=== PATIENT | male | born 1985 | race African-American/Black ===

== ENCOUNTER 2020-02-06 16:44 | Inpatient (IN) | payer BC ==
[~2020-02-06] VITALS: Ht 185.4 cm; Wt 231.3 kg
[2020-02-06 17:15] VITALS: BP_SYST 161
[2020-02-06] MEDS ORDERED: [UNRECOGNIZED DRUG - CODE] PO (17:15)
[2020-02-06] MEDS ORDERED: ACET-2634 PO (17:15)
[2020-02-06] MEDS ORDERED: IBUP-1969 PO (17:15)
[2020-02-06] MEDS ORDERED: NACL 0.9% 1,000 ML IV ONE ×3 (17:45→20:00)
[2020-02-06] MEDS ORDERED: KETOROLAC TROMETHAMINE 30 MG VIAL IVP ONE (17:45)
[2020-02-06 18:53] LABS: CREATININE 0.86 mg/dL (0.55-1.30); POTASSIUM 3.9 mmol/L (3.5-5.1)
[2020-02-06 18:57] LABS: BILIRUBIN,URINE NEGATIVE (NEGATIVE); BLOOD, URINE NEGATIVE (NEGATIVE); CLARITY/URINE CLEAR (CLEAR); COLOR,URINE YELLOW (YELLOW); GLUCOSE,URINE NEGATIVE (NEGATIVE); KETONES,URINE NEGATIVE (NEGATIVE); LEUKOCYTE ESTERASE ,URINE NEGATIVE (NEGATIVE); NITRITE, URINE NEGATIVE (NEGATIVE); PROTEIN URINE NEGATIVE (NEGATIVE); UROBILINOGEN,URINE 0.2 (0.2-1.0)
[2020-02-06 18:59] LABS: BASOPHILS % (AUTO) 0.1 % (0.0-2.0); EOSINOPHILS # (AUTO) 0.1 K/uL (0.0-0.4); EOSINOPHILS % (AUTO) 0.9 % (0.0-4.0); HEMATOCRIT 37.2 % (36-54); HEMOGLOBIN 12.1 g/dL (14.0-18.0); LYMPHOCYTES # (AUTO) 0.7 K/uL (1.0-5.5); LYMPHOCYTES % (AUTO) 4.6 % (20.5-51.5); MEAN CORPUSCULAR HEMOGLOBIN 29 pg (27-31); MEAN CORPUSCULAR HGB CONC 32 % (32-36); MEAN CORPUSCULAR VOLUME 89 fL (79.0-98.0); MONOCYTES # (AUTO) 0.5 K/uL (0.0-1.0); MONOCYTES % (AUTO) 3.1 % (1.7-9.3); NEUTROPHILS % (AUTO) 91.3 % (40.0-70.0); PLATELET COUNT (AUTO) 343 K/uL (130-430); RED CELL DISTRIBUTION WIDTH 14.9 % (9.0-15.0); WHITE BLOOD COUNT (AUTO) 15.3 K/uL (4.8-10.8)
[2020-02-06 19:00] LABS: TOTAL BILIRUBIN 0.4 mg/dL (0.0-1.0)
[2020-02-06] MEDS ORDERED: MORPHINE 4 MG/ML INJ. SYRINGE IVP ONE (19:30)
[2020-02-06] MEDS: PIPERACILLIN/TAZOBACTAM 3.375 GM in NS 50 ML IV SCH (21:25)
[2020-02-06 21:26] VITALS: BP_SYST 126
[2020-02-06] MEDS ORDERED: PIPERACILLIN/TAZOBACTAM 3.375 GM/VIAL (ZOSYN) IV ONE (22:46)
[2020-02-07] VITALS: BP_SYST 122
[2020-02-07] MEDS ORDERED: FLU VACC QS2019-20 36MOS UP/PF 60 MCG/0.5 ML SYRINGE I.M. PRN (03:00)
[2020-02-07] MEDS: PIPERACILLIN/TAZOBACTAM 3.375 GM in NS 50 ML IV SCH ×2 (05:16→12:27)
[2020-02-07 07:40] VITALS: BP_SYST 106
[2020-02-07] MEDS ORDERED: ZOLPIDEM TARTRATE 5 MG TABLET PO PRN (08:45)
[2020-02-07] MEDS ORDERED: ONDANSETRON HCL 4 MG/2 ML VIAL IVP PRN (08:45)
[2020-02-07] MEDS ORDERED: ACETAMINOPHEN 325 MG TABLET PO PRN (08:45)
[2020-02-07] MEDS ORDERED: LORazepam 2 MG/ML VIAL IVP PRN (08:45)
[2020-02-07] MEDS ORDERED: MAGNESIUM SULFATE 50 ML IV PRN (08:45)
[2020-02-07] MEDS ORDERED: POTASSIUM CHLORIDE 20 MEQ TAB.PRT.SR PO PRN (08:45)
[2020-02-07] MEDS ORDERED: MUPIROCIN 2% TOPICAL OINTMENT 22 GM NS PRN (08:45)
[2020-02-07] MEDS ORDERED: MORPHINE 2 MG/ML INJ. SYRINGE IVP PRN ×2 (08:45)
[2020-02-07] MEDS ORDERED: DOCUSATE SODIUM 100 MG CAPSULE PO PRN (08:45)
[2020-02-07] MEDS: NACL 0.9% 1,000 ML IV SCH ×3 (09:20→23:55)
[2020-02-07] MEDS: HEPARIN SODIUM,PORCINE 5000 UNITS/ML VIAL SUBCUT SCH ×2 (09:21→21:33)
[2020-02-07 12:00] VITALS: BP_SYST 121
[2020-02-07 16:00] VITALS: BP_SYST 121
[2020-02-07] MEDS: CLINDAMYCIN 300 MG in D5W 50 ML IV SCH ×2 (17:51→23:55)
[2020-02-07 21:27] VITALS: BP_SYST 148
[2020-02-07] MEDS: ceFAZolin SODIUM 1 GM in D5W 50 ML IV SCH (21:30)
[2020-02-08 01:14] VITALS: BP_SYST 135
[2020-02-08] MEDS: ceFAZolin SODIUM 1 GM in D5W 50 ML IV SCH ×3 (05:01→21:00)
[2020-02-08] MEDS: CLINDAMYCIN 300 MG in D5W 50 ML IV SCH ×4 (05:02→23:58)
[2020-02-08] MEDS: NACL 0.9% 1,000 ML IV SCH ×3 (05:02→21:00)
[2020-02-08 06:33] LABS: CALCIUM 8.4 mg/dL (8.4-11.0); CREATININE 0.82 mg/dL (0.55-1.30); POTASSIUM 3.8 mmol/L (3.5-5.1)
[2020-02-08 06:37] LABS: BASOPHILS % (AUTO) 0.4 % (0.0-2.0); EOSINOPHILS # (AUTO) 0.1 K/uL (0.0-0.4); EOSINOPHILS % (AUTO) 1.4 % (0.0-4.0); HEMATOCRIT 31.6 % (36-54); HEMOGLOBIN 10.3 g/dL (14.0-18.0); MEAN CORPUSCULAR HEMOGLOBIN 29 pg (27-31); MEAN CORPUSCULAR HGB CONC 33 % (32-36); MEAN CORPUSCULAR VOLUME 90 fL (79.0-98.0); MONOCYTES # (AUTO) 0.9 K/uL (0.0-1.0); NEUTROPHILS # (AUTO) 8.7 K/uL (1.8-7.7); NEUTROPHILS % (AUTO) 81.2 % (40.0-70.0); PLATELET COUNT (AUTO) 290 K/uL (130-430); RED BLOOD CELL COUNT(AUTO) 3.52 MIL/uL (4.2-6.2); RED CELL DISTRIBUTION WIDTH 15.1 % (9.0-15.0); WHITE BLOOD COUNT (AUTO) 10.7 K/uL (4.8-10.8)
[2020-02-08 08:00] VITALS: BP_SYST 120
[2020-02-08] MEDS: HEPARIN SODIUM,PORCINE 5000 UNITS/ML VIAL SUBCUT SCH ×2 (09:17→21:09)
[2020-02-08 11:33] VITALS: BP_SYST 121
[2020-02-08 15:28] VITALS: BP_SYST 118
[2020-02-08 16:07] VITALS: BP_SYST 126
[2020-02-08 20:15] VITALS: BP_SYST 128
[2020-02-09 01:15] VITALS: BP_SYST 139
[2020-02-09] MEDS: NACL 0.9% 1,000 ML IV SCH (02:50)
[2020-02-09] MEDS: CLINDAMYCIN 300 MG in D5W 50 ML IV SCH (05:13)
[2020-02-09] MEDS: ceFAZolin SODIUM 1 GM in D5W 50 ML IV SCH (06:18)
[2020-02-09 06:48] LABS: BASOPHILS % (AUTO) 0.8 % (0.0-2.0); EOSINOPHILS # (AUTO) 0.2 K/uL (0.0-0.4); EOSINOPHILS % (AUTO) 3.9 % (0.0-4.0); HEMATOCRIT 33.3 % (36-54); HEMOGLOBIN 10.8 g/dL (14.0-18.0); LYMPHOCYTES # (AUTO) 0.6 K/uL (1.0-5.5); LYMPHOCYTES % (AUTO) 11.2 % (20.5-51.5); MEAN CORPUSCULAR HEMOGLOBIN 29 pg (27-31); MEAN CORPUSCULAR HGB CONC 32 % (32-36); MEAN CORPUSCULAR VOLUME 90 fL (79.0-98.0); MONOCYTES # (AUTO) 0.8 K/uL (0.0-1.0); MONOCYTES % (AUTO) 14.6 % (1.7-9.3); NEUTROPHILS # (AUTO) 3.9 K/uL (1.8-7.7); NEUTROPHILS % (AUTO) 69.5 % (40.0-70.0); PLATELET COUNT (AUTO) 295 K/uL (130-430); RED BLOOD CELL COUNT(AUTO) 3.71 MIL/uL (4.2-6.2); WHITE BLOOD COUNT (AUTO) 5.6 K/uL (4.8-10.8)
[2020-02-09 06:49] LABS: CALCIUM 8.8 mg/dL (8.4-11.0); CREATININE 0.85 mg/dL (0.55-1.30); POTASSIUM 4.4 mmol/L (3.5-5.1)
[2020-02-09] MEDS ORDERED: DOXY100T2 PO (08:58)
[2020-02-09] MEDS: HEPARIN SODIUM,PORCINE 5000 UNITS/ML VIAL SUBCUT SCH (09:03)
[2020-02-09 09:33] VITALS: BP_SYST 136
[2020-02-09 10:35] VITALS: BP_SYST 136
[2020-02-09 13:59] VITALS: BP_SYST 127
== END 2020-02-09 11:30 | disposition home or self-care (01) | DRG 872 ==
LOC: SED 16:44 → SMU 20:36
PROVIDERS: ADMIT General Practice; ATTEND General Practice
DX: A41.9 Sepsis, unspecified organism (principal); L03.116 Cellulitis of left lower limb; Z68.44 Body mass index [BMI] 60.0-69.9, adult; B00.2 Herpesviral gingivostomatitis and pharyngotonsillitis; M10.9 Gout, unspecified; E66.01 Morbid (severe) obesity due to excess calories; I87.8 Other specified disorders of veins; I89.0 Lymphedema, not elsewhere classified; I88.9 Nonspecific lymphadenitis, unspecified; I87.2 Venous insufficiency (chronic) (peripheral); Z90.49 Acquired absence of other specified parts of digestive tract; Z79.899 Other long term (current) drug therapy; Z79.2 Long term (current) use of antibiotics
CPT/HCPCS: 36415; 71045; 80048; 80053; 81003; 83036; 83605; 83735-TC; 84550-TC; 85025; 86710; 87040-TC; 87086; 93971; 96361; 96365; 96375; 99291; J0690; J1644; J1885; J1956; J2270; J2543; J3490; J7030; J7060

== ENCOUNTER 2020-05-15 00:48 | Emergency (ER) | payer BC ==
[~2020-05-15] VITALS: Ht 185.4 cm; Wt 226.8 kg
[2020-05-15 00:48] VITALS: BP_SYST 155
[~2020-05-15 00:48] MED LIST: ACET-2634 PO; DOXY100T2 PO; IBUP-1969 PO; [UNRECOGNIZED DRUG - CODE] PO
[2020-05-15] MEDS ORDERED: MORPHINE 4 MG/ML INJ. SYRINGE IM ONE (03:15)
[2020-05-15 03:38] VITALS: BP_SYST 145
== END 2020-05-15 03:37 | disposition home or self-care (01) ==
LOC: SED 00:48
DX: M25.522 Pain in left elbow (principal); Z79.899 Other long term (current) drug therapy
CPT/HCPCS: 73080; 93005; 96372; 99283; J2270

== ENCOUNTER 2020-05-19 16:16 | Inpatient (IN) | payer BC ==
[~2020-05-19] VITALS: Ht 185.4 cm; Wt 226.8 kg
[2020-05-19] MEDS ORDERED: TRAM50TA2 PO (17:37)
[2020-05-19 17:38] VITALS: BP_SYST 165
--- NOTE | 2020-05-19 17:44 | NUR ---
PATIENT RETURNED TO WAITING AREA PENDING BED ASSIGNMENT
--- NOTE | 2020-05-19 17:50 | NUR ---
Patient to ER bed H1 to gown for evaluation. Side rails up.
--- NOTE | 2020-05-19 17:55 | NUR ---
Patient arrived in the ED c/o severe left elbow pain that started a week ago. Denied any chest pain or shortness of breath. Denied any fevers, chills, nausea or vomiting. Patient is alert and oriented x4, respirations even and unlabored, speaking in full sentences, and ambulating with a steady gait. VSS, pain level 8/10. Informed of the approximate wait time. Instructed to notify ED staff for any changes in condition or worsening of symptoms while waiting to be seen by an ED provider. Patient verbalized understanding.
--- NOTE | 2020-05-19 18:35 | NUR ---
ER Dr. Galaviz at bedside examining patient.
[2020-05-19] MEDS ORDERED: NACL 0.9% 1,000 ML IV ONE (18:36)
[2020-05-19] MEDS ORDERED: MORPHINE 4 MG/ML INJ. SYRINGE IVP ONE (18:45)
[2020-05-19] MEDS ORDERED: ONDANSETRON HCL 4 MG/2 ML VIAL IVP ONE (18:45)
--- NOTE | 2020-05-19 18:55 | NUR ---
# 18 gauge angiocath placed to RAC. Use of asceptic technique. Opsite placed over site. Blood return noted. Blood for lab drawn from site. Flushed with 10 cc of normal saline. No evidence of infiltration noted. Patient tolerated well.
--- NOTE | 2020-05-19 19:01 | NUR ---
Patient taken to X-ray as ordered by Dr. Galaviz, in stable condition.
--- NOTE | 2020-05-19 19:09 | NUR ---
Patient is back from X-ray, in stable condition.
--- NOTE | 2020-05-19 19:14 | NUR ---
Report given and care transferred to BRANDEE Rosado.
--- NOTE | 2020-05-19 19:14 | NUR ---
RECEIVED REPORT FROM BRANDEE MORRISON FOR CONTINUATION OF CARE.
[2020-05-19 19:35] LABS: BASOPHILS # (AUTO) 0.1 K/uL (0.0-0.2); BASOPHILS % (AUTO) 0.9 % (0.0-2.0); EOSINOPHILS # (AUTO) 0.4 K/uL (0.0-0.4); HEMATOCRIT 35.8 % (36-54); HEMOGLOBIN 11.4 g/dL (14.0-18.0); LYMPHOCYTES # (AUTO) 0.9 K/uL (1.0-5.5); LYMPHOCYTES % (AUTO) 10.1 % (20.5-51.5); MEAN CORPUSCULAR HEMOGLOBIN 28 pg (27-31); MEAN CORPUSCULAR HGB CONC 32 % (32-36); MEAN CORPUSCULAR VOLUME 88 fL (79.0-98.0); MONOCYTES # (AUTO) 0.6 K/uL (0.0-1.0); MONOCYTES % (AUTO) 6.9 % (1.7-9.3); NEUTROPHILS # (AUTO) 6.7 K/uL (1.8-7.7); NEUTROPHILS % (AUTO) 77.1 % (40.0-70.0); PLATELET COUNT (AUTO) 425 K/uL (130-430); RED BLOOD CELL COUNT(AUTO) 4.08 MIL/uL (4.2-6.2); RED CELL DISTRIBUTION WIDTH 16.3 % (9.0-15.0); WHITE BLOOD COUNT (AUTO) 8.7 K/uL (4.8-10.8)
[2020-05-19 19:49] LABS: CALCIUM 8.8 mg/dL (8.4-11.0); CREATININE 0.76 mg/dL (0.55-1.30); POTASSIUM 4.2 mmol/L (3.5-5.1)
[2020-05-19 19:58] LABS: ALBUMIN 2.8 g/dL (3.4-4.8); TOTAL BILIRUBIN 0.4 mg/dL (0.0-1.0)
--- NOTE | 2020-05-19 20:15 | NUR ---
Pt resting in ED Hallway chair. No acute distress noted.
[2020-05-19 20:53] LABS: URIC ACID 5.5 mg/dL (2.4-7.0)
--- NOTE | 2020-05-19 21:00 | NUR ---
Pt resting in ED chair. Pt indicated he feels his pain is returning. notified.
[2020-05-19 21:13] LABS: C-REACTIVE PROTEIN QUANT 15.2 mg/dL (0-0.5)
[2020-05-19] MEDS ORDERED: fentaNYL CITRATE/PF 100 MCG/2 ML AMP IVP ONE (21:30)
[2020-05-19] MEDS ORDERED: LIDOCAINE 1%, 20 ML MDV 20 ML ONE (21:37)
[2020-05-19] MEDS ORDERED: fentaNYL CITRATE/PF 100 MCG/2 ML AMP ONE (21:39)
--- NOTE | 2020-05-19 22:00 | NUR ---
Pt moved to ER Bed 03
[2020-05-19] MEDS ORDERED: VANCOMYCIN HCL 1,000 MG in NS 250 ML IV ONE ×4 (22:30)
[2020-05-19] MEDS ORDERED: PIPERACILLIN/TAZO 4.5 GM in NS 100 ML IV ONE (22:30)
[2020-05-19] MEDS ORDERED: KETAMINE 30 MG/3 ML SYRINGE ONE (22:40)
--- NOTE | 2020-05-19 22:40 | NUR ---
bedside performing Sterile aspiration of synovial joint fluid for evaluation. aspirated with 18 guage sterile needle. 10cc of purulent/bloody drainage aspirated and sent to lab. Pt tolerated procedure well. Pain medications administered pre procedure and lidocaine used locally for comfort.
[2020-05-19] MEDS ORDERED: LORazepam 2 MG/ML VIAL ONE (22:41)
[2020-05-19] MEDS ORDERED: LORazepam 2 MG/ML VIAL IVP ONE (22:45)
[2020-05-19] MEDS ORDERED: KETAMINE 30 MG/3 ML SYRINGE IVP ONE (22:45)
[2020-05-19] MEDS ORDERED: VANCOMYCIN HCL 1000 MG/VIAL IV ONE ×2 (23:00)
[2020-05-19] MEDS ORDERED: PIPERACILLIN/TAZOBACTAM 4.5 GM/VIAL (ZOSYN) IV ONE (23:00)
--- NOTE | 2020-05-19 23:44 | NUR ---
Pt resting in ED bed comfortably. Given additional pillow and additional blankets for comfort. Pt states pain is well-controlled. Tolerating IV antibiotics well.
[2020-05-19 23:51] LABS: BF APPEARANCE UNSPUN CLOUDY (CLEAR); BODY FLUID SOURCE/ TYPE JOINT; SOURCE/TYPE ,BODY FLUID SYNOVIAL
[2020-05-19 23:52] LABS: APPEARANCE,SPUN,BODY FLUID CLOUDY (CLEAR); BODY FLUID COLOR RED (LT YELLOW); BODY FLUID TOTAL VOLUME 10 mL; EOSINOPHIL, BODY FLUID 0 %; LYMPHOCYTES, BODY FLUID 6 %; MONOCYTES,BODY FLUID 33 %; NEUTROPHIL, BODY FLUID 61 %; RBC, BODY FLUID 76167 /uL; WBC, BODY FLUID 13667 /uL
--- NOTE | 2020-05-20 01:12 | NUR ---
Pt resting in ED bed at this time. Assisted in re-adjusting. Tolerating IV Antibiotics well. No s/s of adverse reactions.
[2020-05-20] MEDS ORDERED: ONDANSETRON HCL 4 MG/2 ML VIAL IVP PRN (01:45)
--- NOTE | 2020-05-20 03:03 | NUR ---
Pt resting in ED bed. V/S within normal limits.
[2020-05-20 04:00] LABS: BILIRUBIN,URINE NEGATIVE (NEGATIVE); BLOOD, URINE NEGATIVE (NEGATIVE); CLARITY/URINE CLEAR (CLEAR); COLOR,URINE YELLOW (YELLOW); GLUCOSE,URINE NEGATIVE (NEGATIVE); KETONES,URINE NEGATIVE (NEGATIVE); LEUKOCYTE ESTERASE ,URINE NEGATIVE (NEGATIVE); NITRITE, URINE NEGATIVE (NEGATIVE); PH,URINE 6.5 (5.0-8.0); PROTEIN URINE NEGATIVE (NEGATIVE); UROBILINOGEN,URINE 0.2 (0.2-1.0)
--- NOTE | 2020-05-20 05:40 | NUR ---
Pt states that pain is returning. requested Hydromorphone from Floor pyxis. Assisted in adjusting patient in bed. Pt tolerated movement well. Vancomycin completed.
[2020-05-20] MEDS: D5/0.45 NS 1,000 ML IV SCH ×3 (05:48→21:40)
[2020-05-20] MEDS: HYDROmorphone 2 MG/ML VIAL IVP PRN ×4 (05:51→20:10)
--- NOTE | 2020-05-20 06:07 | NUR ---
Pt states pain now well controlled. Tolerating IV fluids well.
--- NOTE | 2020-05-20 07:00 | NUR ---
Assumed care of patient, report received from BRANDEE You.
--- NOTE | 2020-05-20 07:26 | NUR ---
Ortho consult called: for Dr. Camara, regarding septic elbow joint, ordered by Dr. Lopez, spoke with Essence.
[2020-05-20] MEDS ORDERED: IBUPROFEN 400 MG TABLET PO PRN (07:45)
--- NOTE | 2020-05-20 08:24 | NUR ---
Patient will be admitted to care of Dr. Lopez. Admitted to Tele unit. Will go to room 109A. Belongings list completed. Complete and up to date summary report printed. SBAR report to be given at bedside with opportunity for questions. IV site intact and currently infusing.
[2020-05-20 08:40] VITALS: BP_SYST 148
--- NOTE | 2020-05-20 08:40 | NUR ---
Opening Note patient brought to room via gurney, received bedside SBAR report from INTERNET MARKETING CONSULTANT, patient ambulated to bathroom, voided x1, patient ambulated to bed, provided patient with clean gown, direct care counselor in place, IV fluids infusing well to left AC, provided patient with water and hygiene items, educated patient on use of call light and asked to call for assistance, patient verbalized understanding, call light in reach, educated patient on use of bed alarm for patient safety, patient refusing bed alarm, bed in low and locked position.
--- NOTE | 2020-05-20 08:50 | NUR ---
CONSULTATION PAGED REASON FOR CONSULTATION:SEPTIC ARTHRITIS WAS CONSULT CALLED?y PERSON WHO WAS NOTIFIED: CONSULTING PHYSICIAN:EREN SINGH RESEARCHER SPECIALTY:INFECTIOUS DISEASE RESEARCHER PHONE NUMBER:[phone] ORDERING PHYSICIAN:CHIKIS AWAD
--- NOTE | 2020-05-20 10:00 | NUR ---
Late entry: received call from dr. Lopez re: getting CAL or auth for dr. Camara/ septic elbow joint consultation. There is no insurance contact number avaialble in [employer]. I requested Lisbeth /admitting dept to provide the insurance contact number bhavna.
--- NOTE | 2020-05-20 10:21 | NUR ---
DR HARRISON RECEIVED PHONE CALL FROM DR HARRISON WHO STATED THAT THEIR GROUP IS NOT A PART OF PATIENT'S INSURANCE GROUP AND WILL NOT BE ABLE TO SEE PATIENT. DR RIOS PAGED TO NOTIFY
[2020-05-20] MEDS: FAMOTIDINE 20 MG TABLET PO SCH (10:25)
--- NOTE | 2020-05-20 11:15 | NUR ---
RN Rounds patient resting in bed, respirations even and unlabored on room air, no acute distress noted, patient reports pain is controlled at this time.
[2020-05-20 11:41] VITALS: BP_SYST 117
--- NOTE | 2020-05-20 13:10 | NUR ---
RN Rounds patient sitting up in bed, respirations even and unlabored on room air, no acute distress noted, patient reports pain is controlled at this time.
[2020-05-20 13:21] LABS: BODY FLUID GLUCOSE 2 mg/dL; BODY FLUID TOTAL PROTEIN 6.5 g/dL
[2020-05-20] MEDS: ceFAZolin SODIUM 2 GM in D5W 100 ML IV SCH ×2 (14:22→23:11)
--- NOTE | 2020-05-20 15:05 | NUR ---
Physician Rounds Dr. Lopez at bedside examining patient, informed Dr. Lopez that per Dr. Camara his group does not accept the patients insurance.
[2020-05-20 15:45] VITALS: BP_SYST 166
[2020-05-20 16:26] VITALS: BP_SYST 139
--- NOTE | 2020-05-20 17:52 | NUR ---
RN Rounds patient sitting up in bed eating dinner, tolerating well, patient denies any nausea or vomiting, patient reports pain is controlled.
--- NOTE | 2020-05-20 19:09 | NUR ---
Closing Note bedside SBAR report given to receiving RN, patient resting in bed, respirations even and unlabored on room air, no acute distress noted, educated patient on use of call light and asked to call for assistance, patient verbalized understanding, call light in reach, educated patient on use of bed alarm for patient safety, patient refusing bed alarm, bed in low and locked position, care endorsed to casing wringer operator RN.
--- NOTE | 2020-05-20 19:30 | NUR ---
OPENING NOTE RECEIVED CARE OF PT AND SBAR REPORT. PT IS AAOX4, RESTING IN BED, IN NO ACUTE DISTRESS. BREATHING IS EVEN AND UNLABORED TO ROOM AIR. IVF INFUSING AT ORDERED RATE. SAFETY AND FALL PRECAUTIONS ARE IN PLACE. CALL LIGHT IS WITH PT. WILL MONITOR.
[2020-05-20 20:00] VITALS: BP_SYST 142
[2020-05-20] MEDS: COLCHICINE 0.6 MG TABLET PO SCH (20:10)
--- NOTE | 2020-05-21 00:15 | NUR ---
SPOKE WITH DR RIOS RELAYED MESSAGE FROM DR. LANIER TO DR. RIOS. DR RIOS INFORMED NURSE DR HARRISON HAS BEEN CONTACTED FOR CONSULT.
[2020-05-21 00:59] VITALS: BP_SYST 117
[2020-05-21] MEDS: HYDROmorphone 2 MG/ML VIAL IVP PRN ×5 (01:40→21:56)
--- NOTE | 2020-05-21 01:40 | NUR ---
PAIN/DILAUDID PT REPORTING SEVERE PAIN. DILAUDID 1 MG IVP ADMINISTERED ORDERED PRN FOR SEVERE PAIN. MEDICATION AND POTENTIAL SIDE EFFECTS DISCUSSED, PT VERBALIZED UNDERSTANDING. URINAL EMPTIED AT THIS TIME. PT DENIES FURTHER NEEDS. SAFETY AND FALL PRECAUTIONS MAINTAINED. WILL MONITOR.
[2020-05-21] MEDS: ceFAZolin SODIUM 2 GM in D5W 100 ML IV SCH ×3 (05:41→21:55)
--- NOTE | 2020-05-21 05:41 | NUR ---
MED PASS PT REPORTING SEVERE PAIN. DILAUDID 1 MG IVP ADMINISTERED ORDERED PRN FOR SEVERE PAIN. SCHEDULED ANTIBIOTIC GIVEN. MEDICATION AND POTENTIAL SIDE EFFECTS DISCUSSED, PT VERBALIZED UNDERSTANDING. URINAL EMPTIED AT THIS TIME. PT DENIES FURTHER NEEDS. SAFETY AND FALL PRECAUTIONS MAINTAINED. WILL MONITOR.
[2020-05-21 06:24] LABS: BASOPHILS % (AUTO) 0.5 % (0.0-2.0); EOSINOPHILS # (AUTO) 0.3 K/uL (0.0-0.4); EOSINOPHILS % (AUTO) 3.4 % (0.0-4.0); HEMATOCRIT 33.3 % (36-54); HEMOGLOBIN 10.8 g/dL (14.0-18.0); LYMPHOCYTES # (AUTO) 0.7 K/uL (1.0-5.5); LYMPHOCYTES % (AUTO) 7.4 % (20.5-51.5); MEAN CORPUSCULAR HEMOGLOBIN 28 pg (27-31); MEAN CORPUSCULAR HGB CONC 33 % (32-36); MEAN CORPUSCULAR VOLUME 87 fL (79.0-98.0); MONOCYTES # (AUTO) 0.7 K/uL (0.0-1.0); MONOCYTES % (AUTO) 7.4 % (1.7-9.3); NEUTROPHILS # (AUTO) 7.5 K/uL (1.8-7.7); NEUTROPHILS % (AUTO) 81.3 % (40.0-70.0); PLATELET COUNT (AUTO) 410 K/uL (130-430); RED BLOOD CELL COUNT(AUTO) 3.82 MIL/uL (4.2-6.2); WHITE BLOOD COUNT (AUTO) 9.2 K/uL (4.8-10.8)
[2020-05-21 06:48] LABS: ALANINE AMINOTRANSFERASE 54 U/L (12-78); ALBUMIN 2.5 g/dL (3.4-4.8); ASPARTATE AMINOTRANSFERASE 34 U/L (10-37); CALCIUM 8.4 mg/dL (8.4-11.0); CHLORIDE 97 mmol/L (98-107); GLUCOSE 106 mg/dL (70-99); POTASSIUM 4.4 mmol/L (3.5-5.1); SODIUM SERUM 131 mmol/L (136-145); THYROID STIMULATING HORMONE 6.35 uIu/mL (0.34-4.82); TOTAL BILIRUBIN 0.4 mg/dL (0.0-1.0); UREA NITROGEN, BLOOD 8 mg/dL (8-21)
[2020-05-21 07:03] LABS: ANION GAP < 3 (5-15); GFR AFRICAN AMERICAN 168 mL/min (>90)
--- NOTE | 2020-05-21 07:38 | NUR ---
Opening Note received bedside SBAR report from city administrator RN, patient resting in bed, respirations even and unlabored on room air, no acute distress noted, patient reports pain is controlled at this time, educated patient on use of call light and asked to call for assistance, patient verbalized understanding, call light in reach, educated patient on use of bed alarm for patient safety, patient refusing bed alarm, bed in low and locked position.
[2020-05-21 08:00] VITALS: BP_SYST 142
[2020-05-21] MEDS: FAMOTIDINE 20 MG TABLET PO SCH (09:39)
[2020-05-21] MEDS: COLCHICINE 0.6 MG TABLET PO SCH ×3 (09:39→21:55)
--- NOTE | 2020-05-21 09:40 | NUR ---
RN Rounds patient sitting up in bed, respirations even and unlabored on room air, no acute distress noted.
--- NOTE | 2020-05-21 10:35 | NUR ---
Nutrition Update Nathaniel Scale 18 noted. Pt admitted for septic, arthritis Diet: clear liquid BMI: 66.0 kg/m2 RD to follow per nutrition care standards.
[2020-05-21 12:00] VITALS: BP_SYST 140
--- NOTE | 2020-05-21 12:14 | NUR ---
Physician Rounds Dr. Rowan at bedside examining patient, new medication orders received, verified with read back.
--- NOTE | 2020-05-21 14:05 | NUR ---
RN Rounds patient resting in bed, respirations even and unlabored on room air, provided patient with water, no acute distress noted.
--- NOTE | 2020-05-21 14:23 | NUR ---
DC Planning: discussed dc plan with dr. Lopez: She is reevaluating whether the pt will need to transfer out to a contracted insurance network for septic elbow or can f/u care out patient. Dr Lopez made aware[facility] and is out of area here. The pt may need to transfer out for other intervention/surgery. Dr. Lopez asked me to notified dr. Camara for his consultation consideration . I called dr. Camara office asking for his return call. Addendum: 05/21/20 at 1506 by Gris Sahni RN >> Called back from dr. Camara: stated he is not contracted with the [facility] and declined to see the pt. -- Dr Lopez made aware.
--- NOTE | 2020-05-21 15:49 | NUR ---
PAGED PAGED ZAFAR REYNA DEEPTHI AT [phone] SPOKE WITH JAYCEE.
--- NOTE | 2020-05-21 16:33 | NUR ---
RN Rounds patient resting in bed, respirations even and unlabored on room air, no acute distress noted, patient reports pain is controlled at this time.
[2020-05-21 17:26] VITALS: BP_SYST 122
--- NOTE | 2020-05-21 17:40 | NUR ---
RN Rounds patient sitting up in bed eating dinner, patient tolerating regular diet well, patient denies any nausea or vomiting.
--- NOTE | 2020-05-21 19:17 | NUR ---
Closing Note bedside SBAR report given to receiving RN, patient ambulated to bathroom, BM x1, assisted patient to clean, no acute distress noted, educated patient on use of call light and asked to call for assistance, patient verbalized understanding, call light in reach, educated patient on use of bed alarm for patient safety, patient refusing bed alarm, bed in low and locked position, care endorsed to retail shift supervisor RN.
--- NOTE | 2020-05-21 19:45 | NUR ---
INITIAL NOTE RECEIVED PATIENT AWAKE IN BED WATHCING TV. LEFT SLING IN PLACE PILLOW SUPPORT UNDER BUE. BED ALARM ON, BED LOCKED AND IN LOWEST POSITION. SAFETY MEASURES IN PLACE. CALL LIGHT WITHIN REACH.
--- NOTE | 2020-05-21 21:56 | NUR ---
PAIN MEDS PATIENT COMPLAINING OF PAIN TO LEFT ELBOW, MEDICATED ORDERED. PT TOLERATED PAIN MEDS.
--- NOTE | 2020-05-22 | NUR ---
DR LANIER RECEIVED CALL FROM DR LANIER REQUESTING TO CONTACT DR RIOS TO INFORM OF RESULTS FROM ASPIRATION OF ELBOW FLUID AND TO REQUEST CONSULT WITH ID OR ORTHO. WILL CONTACT DR RIOS.
--- NOTE | 2020-05-22 00:14 | NUR ---
Paged Dr. Lopez. The doctor spoke with the nurse.
[2020-05-22 00:42] VITALS: BP_SYST 120
[2020-05-22] MEDS: HYDROmorphone 2 MG/ML VIAL IVP PRN ×3 (01:16→23:48)
[2020-05-22] MEDS: ceFAZolin SODIUM 2 GM in D5W 100 ML IV SCH (06:06)
--- NOTE | 2020-05-22 07:00 | NUR ---
NOTE PATIENT AWAKE WATCHING TV, NO COMPLAINTS OF PAIN AT THIS TIME. LEFT SLING REMAINS IN PLACE. PATIENT REQUESTING SHOWER WILL ENDORSE TO AM NURSE.
--- NOTE | 2020-05-22 07:15 | NUR ---
ENDORSED CARE TO SHERRI IRVIN. PATIENT STABLE. ENDORSED PATIENT REQUEST TO SHOWER THIS AM.
[2020-05-22 08:00] VITALS: BP_SYST 153
[2020-05-22] MEDS: COLCHICINE 0.6 MG TABLET PO SCH ×3 (09:18→20:38)
[2020-05-22] MEDS: FAMOTIDINE 20 MG TABLET PO SCH (09:19)
--- NOTE | 2020-05-22 10:48 | NUR ---
Patient is in bed resting. Patient expressed pain in his left arm. Patient instructed about pain medication administration time and instructed patient that PRN pain medication will be delivered at the appropriate scheduled time. Patient denies shortness of breath. Patient is alert and oriented x4. Bed in low position. Call light in reach. Will continue to monitor patient throughout shift.
--- NOTE | 2020-05-22 11:01 | NUR ---
CALLED A CONSULT TO DR PARVIN BENITEZ, RE: SEPTIC ARTHRITIS. CALLED HIM ON HIS CELL AND HE SAID HE WILL SEE PT TODAY LATE AFTERNOON.
--- NOTE | 2020-05-22 11:12 | NUR ---
DC Planning: Per MARCIE Rosario, dr. Lee accepted the consultation and will be coming in to see the pt this afternoon. Dr Lopez made aware.
[2020-05-22 11:33] VITALS: BP_SYST 116
[2020-05-22 15:33] VITALS: BP_SYST 135
[2020-05-22] MEDS: AMPICILLIN SODIUM 2 GM in NS 100 ML IV SCH ×2 (18:00→23:20)
--- NOTE | 2020-05-22 18:51 | NUR ---
Patient is in bed resting. Will endorse IV insertion to wind turbine design engineer nurse. Patient is alert and oriented x4. Patient denies pain and shortness of breath. Patient is able to ambulate independently. Bed in low position. Call light in reach. Will give report to night nurse.
[2020-05-22 20:00] VITALS: BP_SYST 153
--- NOTE | 2020-05-22 20:00 | NUR ---
A/A/ O X4.DENIES ANY DISCOMFORT @ THIS TIME. DENIES SOB. NOTED LEFT UPPER EXTREMITY WITH SLING.LEFT ELBOW SWOLLEN PT STATED MOVEMENT IS LIMITED.LEFT LOWER EXTREMITY WITH BLACKISH DISCOLORATION +3 EDEMA & SCALY & DRY.AFEBRILE.BP 153/81. O2 SAT ON RA 94%.
--- NOTE | 2020-05-22 21:00 | NUR ---
DUE MED ADM.
--- NOTE | 2020-05-22 22:30 | NUR ---
IV INSERTED BY ANOTHER RN TRIED X2 UNSUCCESSFUL. TRIED X 3 UNSUCCESSFUL. ANOTHER RN WAS CALLED IV INSERTED ON HIS RFA WITH ANGIO # 2O;COVERED WITH KERLIX PER PT'S REQUEST. CALL LIGHT WITHIN REACH.
--- NOTE | 2020-05-22 23:48 | NUR ---
C/O THROBBING PAIN ON HIS LEFT ELBOW.SCALE 8/10.DILAUDID 1 MG IVP ADM.
--- NOTE | 2020-05-23 00:18 | NUR ---
PER PT PAIN STILL PERSIST BUT DECREASED TO SCALE 2/10.
[2020-05-23 01:32] VITALS: BP_SYST 108
--- NOTE | 2020-05-23 02:00 | NUR ---
FOUND RESTING COMFORTABLY IN NO ACUTE DISTRESS.
--- NOTE | 2020-05-23 04:00 | NUR ---
ASLEEP IN NO ACUTE DISTRESS.CALL LIGHT WITHIN REACH.
[2020-05-23] MEDS: AMPICILLIN SODIUM 2 GM in NS 100 ML IV SCH ×4 (05:50→23:37)
[2020-05-23] MEDS: HYDROmorphone 2 MG/ML VIAL IVP PRN ×2 (06:13→11:15)
--- NOTE | 2020-05-23 06:55 | NUR ---
ENDORSED IN NO ACUTE DISTRESS.RESTING COMFORTABLY.LEFT ELBOW WITH SLING.SAFETY MAINTAINED.
[2020-05-23 07:40] LABS: BASOPHILS % (AUTO) 0.4 % (0.0-2.0); EOSINOPHILS # (AUTO) 0.3 K/uL (0.0-0.4); EOSINOPHILS % (AUTO) 4.1 % (0.0-4.0); HEMATOCRIT 36.2 % (36-54); HEMOGLOBIN 11.7 g/dL (14.0-18.0); LYMPHOCYTES # (AUTO) 0.8 K/uL (1.0-5.5); LYMPHOCYTES % (AUTO) 10.3 % (20.5-51.5); MEAN CORPUSCULAR HEMOGLOBIN 28 pg (27-31); MEAN CORPUSCULAR HGB CONC 32 % (32-36); MEAN CORPUSCULAR VOLUME 87 fL (79.0-98.0); MONOCYTES # (AUTO) 0.5 K/uL (0.0-1.0); MONOCYTES % (AUTO) 5.5 % (1.7-9.3); NEUTROPHILS # (AUTO) 6.5 K/uL (1.8-7.7); NEUTROPHILS % (AUTO) 79.7 % (40.0-70.0); PLATELET COUNT (AUTO) 479 K/uL (130-430); RED BLOOD CELL COUNT(AUTO) 4.17 MIL/uL (4.2-6.2); RED CELL DISTRIBUTION WIDTH 15.9 % (9.0-15.0); WHITE BLOOD COUNT (AUTO) 8.2 K/uL (4.8-10.8)
[2020-05-23 07:53] LABS: ALBUMIN 2.7 g/dL (3.4-4.8); CALCIUM 9.1 mg/dL (8.4-11.0); CREATININE 0.86 mg/dL (0.55-1.30); POTASSIUM 4.1 mmol/L (3.5-5.1); TOTAL BILIRUBIN 0.4 mg/dL (0.0-1.0)
[2020-05-23 08:00] VITALS: BP_SYST 118
--- NOTE | 2020-05-23 08:00 | NUR ---
Note Pt sitting up in bed to eat his breakfast. No SOB/resp distress or severe left elbow pain/discomfort noted at this time. Left arm in sling at this time. IV in right forearm intact and patent. No needs noted at this time. Call light within reach.
[2020-05-23] MEDS: COLCHICINE 0.6 MG TABLET PO SCH ×3 (09:00→22:54)
[2020-05-23] MEDS: FAMOTIDINE 20 MG TABLET PO SCH (09:03)
--- NOTE | 2020-05-23 09:14 | NUR ---
Dietitian Recommendations - Recommend continuing regular diet - Consider double portion protein entrees if pt desires Please refer to Nutrition Assessment for details. SS, GERMAN
--- NOTE | 2020-05-23 11:15 | NUR ---
Note Pt was given Dilaudid 1mg IVP for severe pain in left elbow.
[2020-05-23 12:37] VITALS: BP_SYST 132
--- NOTE | 2020-05-23 13:40 | NUR ---
Note Dilaudid IVP did not help when reassessed at 1145am. Dr Lopez was called and noted that Dr Lee (ortho) will be coming in to assess pt and will order some medication for the left elbow (gout) pain. Pt was notified.
[2020-05-23] MEDS ORDERED: HYDROmorphone 2 MG/ML VIAL IVP PRN (14:15)
[2020-05-23] MEDS: INDOMETHACIN 25 MG CAPSULE(INDOCIN) PO SCH ×2 (14:29→22:54)
--- NOTE | 2020-05-23 14:40 | NUR ---
Note Dr Lee on the floor to assess pt and write orders at 1350. Pt sitting up in bed at this time. Left elbow elevated on pillow and heat applied to left elbow. Pain tolerable at this time. No needs noted at this time. Call light within reach.
--- NOTE | 2020-05-23 16:00 | NUR ---
Note Dr Lopez on the floor and was notified that pt was positive for MDRO and E-coli in urine at this time.
[2020-05-23] MEDS: HYDROcodone/ACETAMIN 10-325 MG TAB PO PRN (16:17)
[2020-05-23 16:44] VITALS: BP_SYST 115
--- NOTE | 2020-05-23 18:30 | NUR ---
Note Pt ambulated to restroom to have bowel movement independently and went back to sitting on side of bed for about 30 minutes to an hour. No SOB/resp distress or severe left elbow pain/discomfort was noted. IV in right forearm intact and patent at this time. No needs noted. Pt was maintained with safety precautions all shift. Call light within reach. Left arm in sling. Pt able to move fingers and arm at request all shift.
[2020-05-23 20:00] VITALS: BP_SYST 134
[2020-05-24] VITALS (7 sets, daily range): BP systolic 107–127
[2020-05-24] MEDS: AMPICILLIN SODIUM 2 GM in NS 100 ML IV SCH ×2 (06:08→11:41)
--- NOTE | 2020-05-24 08:00 | NUR ---
OPENING NOTES Received report from night manager nurse. Patient resting in bed, AAOx4, breathing evenly and nonlabored to room air. Patient has an SL on right arm, patent and benign, no s/s of infection or infiltration noted at this time. Educated patient on plan of care, fall/safety/isolation precautions, call light system, patient verbalized understanding with return demonstration. Bed is locked and at lowest position, will continue to monitor.
[2020-05-24] MEDS: COLCHICINE 0.6 MG TABLET PO SCH ×4 (08:22→23:49)
[2020-05-24] MEDS: HYDROcodone/ACETAMIN 10-325 MG TAB PO PRN ×3 (08:26→21:48)
[2020-05-24] MEDS: FAMOTIDINE 20 MG TABLET PO SCH (08:26)
[2020-05-24] MEDS: INDOMETHACIN 25 MG CAPSULE(INDOCIN) PO SCH ×3 (10:17→21:34)
[2020-05-24] MEDS ORDERED: MEROPENEM 1 GM in NS 100 ML IV ONE (12:00)
--- NOTE | 2020-05-24 15:00 | NUR ---
MD round Dr. Santos came to see the patient. is aware that patient wants to take only oral pain med for elbow pain. No new order this time.
--- NOTE | 2020-05-24 16:22 | NUR ---
Isolation MDRO positive in Urine culture.Ampicillin was d/c and meropenem was started according to the sensibility. Place the isolation sign on the room.
--- NOTE | 2020-05-24 18:08 | NUR ---
Closing Note Patient ambulated to bathroom, BM x1, assisted patient to clean, no acute distress noted, educated patient on use of call light and asked to call for assistance, patient verbalized understanding, call light in reach, bed in low and locked position, care endorsed to shift lab technician RN.
--- NOTE | 2020-05-24 19:15 | NUR ---
change of shift,.pt.presents isolation status;contact;mdro;urine.pt.presents quiescent affect;calm,resting viewing tv programing.pt.presents iv access;location;rt.forearm;iv lock. no c/o pain,nausea.pt.capable to reposition self. general status stabel.respiratory status stable@room air.call light/telephone w/in reach of the pt.
--- NOTE | 2020-05-24 20:00 | NUR ---
pt.assessed.v/s assessed;values w/in normal limits.no c/o pain,nausea.i have apprised the pt.that snacks/beverages are available w/in the shift.pt.requested any food items.i have provided various food items. pt.utilizing the urinal.i have attended to the urinal.measured/cleaned placed w/in access to the pt. general status stable.respiratory status stable@room air.pt.capable to reposition/ambulate self. call light/telephone w/in reach of the pt.
--- NOTE | 2020-05-24 21:00 | NUR ---
2100pmedications administered.pt.capable to ingest po medications w/out difficulty. i have attended to the urinal;measured/placed w/in access of the pt.
[2020-05-24] MEDS: MEROPENEM 1 GM in NS 100 ML IV SCH (21:36)
[2020-05-25] VITALS: BP_SYST 124
--- NOTE | 2020-05-25 | NUR ---
pt.assessed.v/s assessed;values w/in normal limits.no c/o pain,nausea.i have attended to the urinal:measured/cleaned placed w/in access of the pt.no requests posited@this hour.general status stable.respiratory status stable.pt.capable to reposition self.call light/telephone reach of the pt.
--- NOTE | 2020-05-25 02:00 | NUR ---
pt.assessed.pt.presnts quiescent affect;calm,somnolent.i have attended to the urinal;measured/ cleaned placed w/in access of the pt.pt.capable to reposition self.iv access intact;patent iv lock. general status stable.respiratory status stable.call light/telephone w/in reach of the pt.
--- NOTE | 2020-05-25 04:00 | NUR ---
pt.assessed.pt.presents quiescent affect;calm,somnolent.i have attended to the urinal;measured/cleaned placed w/in access of the pt.i have administered merrem;abx;ivpb:0400a dose.no c/o pain,nausea.no requests posited@this hour.general status stable.respiratory status stable;unlabored.call light/telephone w/in reach of the pt.
[2020-05-25] MEDS: MEROPENEM 1 GM in NS 100 ML IV SCH ×3 (04:27→20:15)
[2020-05-25] MEDS: COLCHICINE 0.6 MG TABLET PO SCH ×3 (05:39→16:19)
[2020-05-25] MEDS: HYDROcodone/ACETAMIN 10-325 MG TAB PO PRN ×3 (05:48→20:24)
--- NOTE | 2020-05-25 06:26 | NUR ---
pt.assessed.pt had requested medication;pain.i have administered norco:10/325mg po.to re-assess the pain medication efficacy per pain mgx protocol.pt.requested fresh water;provided.i have attended to the urinal;measured/cleaned placed w/in access of the pt.call light/telephone w/in reach of the pt.
[2020-05-25 08:00] VITALS: BP_SYST 155
[2020-05-25] MEDS: FAMOTIDINE 20 MG TABLET PO SCH (08:44)
[2020-05-25] MEDS: INDOMETHACIN 25 MG CAPSULE(INDOCIN) PO SCH ×3 (08:52→20:15)
--- NOTE | 2020-05-25 11:31 | NUR ---
alert, oriented, appropriate, left arm moves with difficulty, asking for NORCO , given, po
[2020-05-25 11:47] VITALS: BP_SYST 137
[2020-05-25 16:00] VITALS: BP_SYST 140
--- NOTE | 2020-05-25 19:00 | NUR ---
OPENING NOTES Patient is resting, sitting up in bed, no signs of distress observed. IV site patent, dressings c/d/i. Urinal at bedside, E-coli urine, noted, isolation precautions to be kept throughout shift. Call light within reach, bed alarm reused after patient education provided of bed alarm, bed at lowest position. Will continue to monitor.
[2020-05-25 20:00] VITALS: BP_SYST 129
[2020-05-26 00:29] VITALS: BP_SYST 135
[2020-05-26] MEDS: COLCHICINE 0.6 MG TABLET PO SCH ×3 (00:47→12:27)
--- NOTE | 2020-05-26 02:11 | NUR ---
Patient is resting, eyes closed, no signs of shortness of breath. will continue to monitor.
[2020-05-26] MEDS: MEROPENEM 1 GM in NS 100 ML IV SCH ×2 (04:00→16:37)
--- NOTE | 2020-05-26 05:18 | NUR ---
IV insertions attempted, unsuccessful after 2 tries. Emptied urinal. Will continue to monitor.
--- NOTE | 2020-05-26 07:02 | NUR ---
CLOSING NOTES Patient is resting, after ambulating to the restroom, no signs of distress observed. IV was not able to obtained after 3 attempts. Call light within reach, bed alarm refused after patient demonstrated proper call light use throughout shift. All needs met throughout shift, will endorse care to oncoming shift.
[2020-05-26 08:00] VITALS: BP_SYST 144
--- NOTE | 2020-05-26 08:00 | NUR ---
INITIAL NOTES RESTING IN BED, ALERT AND ORIENTED. NO SHORTNESS OF BREATH ON ROOM AIR. COMPLAINED OF LEFT ARM PAIN. EATS BREAKFAST INDEPENDENTLY. EXPLAINED UPCOMING PICC LINE INSERTION. PATIENT VERBALIZED UNDERSTANDING. PER PATIENT HE WALKS TO THE RESTROOM. FALL ND SAFETY CHECKS DONE. CALL LIGHT WITHIN REACH. WILL CONTINUE TO MONITOR.
[2020-05-26 08:22] LABS: INR 1.1 (0.80-1.20); PROTHROMBIN TIME 10.7 SECS (9.5-12.5)
--- NOTE | 2020-05-26 10:00 | NUR ---
MED PASS PATIENT TOOK HIS MEDICATIONS WELL. PAIN ON LEFT ARM IS CONTROLLED. TOLD PATIENT THAT PICC LINE NURSE CALLED AND SAID THAT HE WILL BE HERE AT 12NN. NEEDS ATTENDED. ENSURED SAFETY. WILL MONITOR.
[2020-05-26] MEDS: FAMOTIDINE 20 MG TABLET PO SCH (10:03)
[2020-05-26] MEDS: INDOMETHACIN 25 MG CAPSULE(INDOCIN) PO SCH ×2 (10:04→14:40)
--- NOTE | 2020-05-26 11:30 | NUR ---
ROUNDS PAIN IS BETTER AT THIS TIME PER PATIENT. APPLIED LOTION ON BOTH LEGS. ENCOURAGED BED MOBILITY. ENSURED SAFETY. NO OTHER COMPLAINS AT THIS TIME.
[2020-05-26 11:40] VITALS: BP_SYST 120
--- NOTE | 2020-05-26 12:40 | NUR ---
MD ROUNDS DR. RIOS DISCUSSED DISCHARGE PLANNING FOR PATIENT AT BEDSIDE. IS AWARE THAT THE PICC LINE NURSE COMING TODAY.
--- NOTE | 2020-05-26 12:46 | NUR ---
Nutrition F/U Admitting Diagnosis: Septic Arthritis Medical History Comment: Per H+P note, pt is presenting w/ intractable left elbow pain, h/o gout, HTN (now WNL), and moderate malnutrition. Per updated MD note, pt is also experiencing bilateral lower extremity edema and a wound on the left and righ lower extremities. Subjective Information Pt remains in isolation and RD visit deferred. Per EMR review, pt continues to tolerate current diet, PO intake is good averaging 96% of 12 meals in [address] placed phone call to pt's room to offer nutrition education but no response x 2 attempts. Current diet remains appropriate. Current Diet Order/Nutrition Support: Regular Diet x5 day. Pertinent Medications: Pepcid. Zofran Pertinent Labs No new labs Skin Integrity Comment: Nathaniel Scale: 20 Wounds noted on both of the lower extremities. Current % PO Good (75-100%) NEW Estimated Energy Expenditure (kcals/day) 2340-4946 kcal/day (25-30 kcal/kg IBW for Morbid Obesity) NEW Estimated Protein Required (g/day) 126-168 gm/day g/day (1.5-2 g/kg IBW for Morbid obesity and sepsis) NEW Estimated Fluid Required (l/day) 2.1-2.5 L/day (1ml/calorie for maintenance) Problem/Etiology/Signs/Symptoms Morbid obesity related to lifestyle factors as evidenced by CBW of 500 lbs, 272% IBW, and BMI of 66 kg/m2. (*ongoing) Expected Outcomes/Goals Monitor appetite and PO intakes w/ goal of pt meeting at least 75% of estimated nutritional needs, labs trending WNL, normal GI function, and skin integrity/wt maintenance. Dietitian Recommendations - Recommend continuing regular diet - Recommend double portion protein entrees Follow Up Moderate Risk: F/U in 3-5days
--- NOTE | 2020-05-26 12:53 | NUR ---
Dietitian Recommendations - Recommend continuing regular diet - Recommend double portion protein entrees Please see Nutrition F/U note for details. GERMAN DOZIER
--- NOTE | 2020-05-26 14:10 | NUR ---
DC Planning: Updated pt status and faxed dc order to Mahesh/Amber mchugh. fax# [phone], tel [phone] . Per Mahesh : to contact [facility] [employer] for contracted HH and IV infusion c.o. Per BRANDEE Strickland, PICC line is scheduled for the pt this afternoon. Addendum: 05/26/20 at 1530 by Gris Sahni RN HH and iV abx set up : per MELLY Case at [facility] to contact: [facility]: faxed referral inquiry attn to Christ/Cameron fax # [phone], tel # [phone] [facility] infusion company: faxed referal inquiry attn to Henrry/cameron fax # [phone], tel # [phone]. Addendum: 05/26/20 at 1553 by Gris Sahni RN >> Called back from [place] at [facility]: stated " Unable to accept the pt . The company currently not accepting [employer] insurance despite their approval." Addendum: 05/26/20 at 1614 by Gris Sahni RN >> [facility] infusion [facility]: Juan Meyers the pt is accepted, and is ready to deliver the IV med. The discharge is pending an accepting . Addendum: 05/26/20 at 1701 by Gris Sahni RN >> Juan Meyers : The home health is provided as well. She will be calling [email or web address] [facility] for authorization. BRANDEE Strickland made aware the pt can go home today after last dose of iv abx.
--- NOTE | 2020-05-26 14:30 | NUR ---
MED PASS PATIENT WAS ABLE TO TAKE HIS INDOCIN WELL. NO OTHER COMPLAINS. ENSURED SAFETY.
--- NOTE | 2020-05-26 15:10 | NUR ---
MIDLINE INSERTION NURSE IS AT BEDSIDE WORKING WITH THE PATIENT AT THIS TIME.
[2020-05-26 15:41] VITALS: BP_SYST 151
--- NOTE | 2020-05-26 16:30 | NUR ---
LAST DOSE OF MERREM GIVEN PICC LINE IS INTACT AND PATENT. IV ANTIBIOTICS GIVEN. EXPLAINED TO PATIENT ABOUT DISCHARGE PLANNING, VERBALIZED UNDERSTANDING.
[2020-05-26] MEDS ORDERED: COLC0.6T67 PO (18:25)
[2020-05-26 18:33] VITALS: BP_SYST 151
[2020-05-26] MEDS ORDERED: FAMO40TA71 PO (18:42)
[2020-05-26] MEDS ORDERED: INDO-12 PO (18:44)
--- NOTE | 2020-05-26 18:50 | NUR ---
PATIENT SIGNED DISCHARGE INSTRUCTIONS. GAVE NUMBER AND CONTACT FOR [facility] FOR THE HOME INFUSIONS THAT HE'S GOING TO RECEIVE.
--- NOTE | 2020-05-26 19:30 | NUR ---
D/C Patient Patient given medication reconciliation form and D/C instructions. Exit Care provided. Patient verbalized understanding. MD discussed with patient the results and treatment provided. Ambulatory with steady gait for discharge to home. Patient in stable condition, ID band removed. PICC line intact. Rx of Colchicine, Indocin and Pepcid given. Patient educated on pain management. All belongings sent with patient.
== END 2020-05-26 19:30 | disposition home health service (06) | DRG 549 ==
LOC: SED 16:16 → STU 05-20 01:40 → SMU 05-20 23:46
PROVIDERS: ADMIT Internal Medicine; ATTEND Internal Medicine
PROC: 05HY33Z Insertion of Infusion Device into Upper Vein, Percutaneous Approach (ICD-10-PCS; principal; 2020-05-26)
PROC: B54MZZA Ultrasonography of Right Upper Extremity Veins, Guidance (ICD-10-PCS; 2020-05-26)
DX: M00.2 Other streptococcal arthritis and polyarthritis (principal); L03.115 Cellulitis of right lower limb; L03.116 Cellulitis of left lower limb; E44.0 Moderate protein-calorie malnutrition; Z68.44 Body mass index [BMI] 60.0-69.9, adult; N39.0 Urinary tract infection, site not specified; M70.22 Olecranon bursitis, left elbow; M00.9 Pyogenic arthritis, unspecified; E66.01 Morbid (severe) obesity due to excess calories; I10 Essential (primary) hypertension; M10.9 Gout, unspecified; B96.20 Unspecified Escherichia coli [E. coli] as the cause of diseases classified elsewhere; B95.1 Streptococcus, group B, as the cause of diseases classified elsewhere; Z90.49 Acquired absence of other specified parts of digestive tract; Z79.899 Other long term (current) drug therapy
CPT/HCPCS: 36415; 80053; 81003; 82947-TC; 83605; 84157-TC; 84439; 84443-TC; 84550-TC; 85025; 85610-TC; 85651-TC; 85730-TC; 86140; 87040-TC; 87070-TC; 87081; 87086; 87186-TC; 89051-TC; 89060-TC; 93971; 96361; 96365; 96368; 96375; 99285; C1751; J0290; J0690; J1170; J2001; J2060; J2185; J2270; J2405; J2543; J3010; J3370; J7040; J7050; J7060